=== PATIENT | female | born 1965 ===

== ENCOUNTER 2021-08-30 07:52 | Outpatient (REF) | payer MEDICARE, MEDICAID, SELFPAY ==
--- NOTE | ~2021-08-30 | XR_ITS ---
EXAMINATION: XR ANKLE, LEFT CLINICAL INFORMATION: Pain COMPARISON: None TECHNIQUE: AP, lateral, and mortise views of the left ankle. FINDINGS: Bone alignment is normal. No fracture or dislocation is seen. The ankle mortise is normal. There are calcaneal spurs. There is a sclerotic density that projects over the first metatarsal shaft. XR/XR ankle LT min 3V IMPRESSION: Normal ankle. Calcaneal spurs.
== END 2021-08-30 07:53 | disposition home or self-care (01) ==
LOC: HO.HOSX 07:52
PROVIDERS: Visit Provider Physician Assistant
DX: S93.402A Sprain of unspecified ligament of left ankle, initial encounter (principal)
CPT/HCPCS: 73610; 99202